=== PATIENT | female | born 1990 | race Caucasian/White ===

== ENCOUNTER 2017-09-16 00:58 | Inpatient (IN) | payer BC ==
[2017-09-16] MEDS ORDERED: VANCOMYCIN 1 GM (PMX) 250 ML IVPB (02:00)
[2017-09-16] MEDS: SOD CHLORIDE 0.9% 1,000 ML IV ×6 (02:20→20:36)
[2017-09-16] MEDS: morphine 4 MG/ML VIAL IV (02:34)
[2017-09-16] MEDS: ACETAMINOPHEN 500 MG TAB PO (02:34)
[2017-09-16] MEDS: IBUPROFEN 800 MG TAB PO (02:34)
[2017-09-16] MEDS: VANCOMYCIN 1 GM (PMX) 250 ML IVPB (02:34)
[2017-09-16 02:39] LABS: ADD MAN DIFF? NO
[2017-09-16 02:41] LABS: WHITE BLOOD COUNT 15.7 10^3/ul (4.8-10.8)
[2017-09-16 02:41] LABS: BASOPHILS % 0.2 % (0.0-2.0); EOSINOPHILS % 0.2 % (0.0-7.0); HEMATOCRIT 39.2 % (37.0-47.0); LYMPHOCYTES # 1.1 10^3/ul (0.8-2.9); LYMPHOCYTES % 7.2 % (15.0-51.0); MEAN CORPUSCULAR HEMOGLOBIN 27.5 pg (29.0-33.0); MEAN CORPUSCULAR HGB CONC 33.2 g/dl (32.0-37.0); MEAN CORPUSCULAR VOLUME 83.1 fl (82.0-101.0); MEAN PLATELET VOLUME 9.5 fl (7.4-10.4); MONOCYTE # 0.7 10^3/ul (0.3-0.9); MONOCYTES % 4.6 % (0.0-11.0); NEUTROPHIL # 13.7 10^3/ul (1.6-7.5); NEUTROPHILS % 87.2 % (39.0-77.0); PLATELET COUNT 297 10^3/UL (140-415); RED BLOOD COUNT 4.72 10^6/ul (4.20-5.40); RED CELL DISTRIBUTION WIDTH 13.6 % (11.5-14.5)
[2017-09-16 03:05] LABS: ALANINE AMINOTRANSFERASE 32 IU/L (13-69); ALBUMIN 4.2 g/dl (3.3-4.9); ALBUMIN/GLOBULIN RATIO 1.35; ALKALINE PHOSPHATASE 87 IU/L (42-121); AMYLASE 71 U/L (11-123); ANION GAP 16 (8-16); ASPARTATE AMINO TRANSFERASE 20 IU/L (15-46); BILIRUBIN,INDIRECT 0.6 mg/dl (0-1.1); BILIRUBIN,TOTAL 0.6 mg/dl (0.2-1.3); BLOOD UREA NITROGEN 12 mg/dl (7-20); CALCIUM 9.9 mg/dl (8.4-10.2); CARBON DIOXIDE 26 mmol/L (21-31); CHLORIDE 104 mmol/L (97-110); CREATININE 0.62 mg/dl (0.44-1.00); GLUCOSE 135 mg/dl (70-220); LIPASE 26 U/L (23-300); POTASSIUM 4.3 mmol/L (3.5-5.1); SODIUM 142 mmol/L (135-144); TOTAL PROTEIN 7.3 g/dl (6.1-8.1)
[2017-09-16 03:10] LABS: LACTIC ACID 2.5 mmol/L (0.5-2.0)
[2017-09-16 03:20] LABS: ADD UMIC YES; UR ASCORBIC ACID NEGATIVE (NEGATIVE); UR BACTERIA FEW /HPF (NONE SEEN); UR BILIRUBIN (Dip) NEGATIVE (NEGATIVE); UR BLOOD (Dip) 3+ mg/dL (NEGATIVE); UR BUDDING YEAST FEW /HPF (NONE SEEN); UR CLARITY SLIGHTLY CLOUDY (CLEAR); UR COLOR STRAW (YELLOW); UR GLUCOSE (Dip) NEGATIVE (NEGATIVE); UR KETONES (Dip) NEGATIVE (NEGATIVE); UR LEUKOCYTE ESTERASE (Dip) 3+ Leu/ul (NEGATIVE); UR NITRITE (Dip) NEGATIVE (NEGATIVE); UR RBC 13 /HPF (0-5); UR TOTAL PROTEIN (Dip) NEGATIVE (NEGATIVE); UR UROBILINOGEN (Dip) NEGATIVE (NEGATIVE); UR WBC 28 /HPF (0-5)
[2017-09-16] MEDS: IOHEXOL 300MG/ML 150 ML BTL (03:51)
[2017-09-16] MEDS: SOD CHLORIDE 0.9% 100 ML (03:51)
[2017-09-16 03:57] LABS: INR 0.94; PROTIME 12.7 Sec (11.9-14.9)
[2017-09-16 03:58] LABS: PARTIAL THROMBOPLASTIN TIME 29.8 Sec (25.0-35.0)
[2017-09-16] MEDS ORDERED: SOD CHLORIDE 0.9% 250 ML IV (04:00)
[2017-09-16] MEDS: LORAZEPAM 2 MG INJ IV (04:47)
[2017-09-16] MEDS: SOD CHLORIDE 0.9% IV (04:47)
[2017-09-16] MEDS: MEROPENEM 1 GM/50ML(PMX) 50 ML IVPB ×3 (04:56→21:52)
[2017-09-16] MEDS ORDERED: NACL 0.9% 3 ML SYG IV (05:00)
[2017-09-16] MEDS ORDERED: DOCUSATE SODIUM 100 MG CAP PO (05:00)
[2017-09-16] MEDS ORDERED: BISACODYL (EC) 5 MG TAB PO (05:00)
[2017-09-16] MEDS ORDERED: HYDROmorphONE 0.5 MG/0.5 ML SYG IV (05:00)
[2017-09-16 08:11] LABS: LACTIC ACID 1.7 mmol/L (0.5-2.0)
[2017-09-16 10:43] LABS: LACTIC ACID 1.3 mmol/L (0.5-2.0)
[2017-09-16] MEDS ORDERED: BUPIVACAINE 0.5% (SDV) 30 ML INJ (14:03)
[2017-09-16] MEDS ORDERED: ROPIVACAINE 0.5 % 30 ML VIAL (17:23)
[2017-09-16] MEDS ORDERED: FENTAnyl 50 MCG/ML VIAL (17:23)
[2017-09-16] MEDS ORDERED: ROCURONIUM 50 MG INJ (17:26)
[2017-09-16] MEDS ORDERED: SUGAMMADEX SODIUM 200 MG/2 ML VIAL IV (17:26)
[2017-09-16] MEDS ORDERED: LIDOCAINE 100 MG SYRINGE (17:26)
[2017-09-16] MEDS ORDERED: PROPOFOL 20 ML (17:26)
[2017-09-16] MEDS ORDERED: SUCCINYLCHOLINE CHLORIDE 100 MG/5 ML SYG IV (17:26)
[2017-09-16] MEDS: BUPIVACAINE 0.5%/EPI (SDV) 30 ML INJ INJ (17:30)
[2017-09-16] MEDS ORDERED: ONDANSETRON 4 MG INJ IV ×2 (18:30→19:00)
[2017-09-16] MEDS ORDERED: OXYCODONE/ACETAMINOPHEN (5/325) TAB PO (18:30)
[2017-09-16] MEDS: morphine 2 MG INJ IV ×2 (18:37→21:30)
[2017-09-16] MEDS: ONDANSETRON 4 MG INJ IV (18:37)
[2017-09-16] MEDS ORDERED: HYDROmorphONE 1 MG/5 ML IV SYRINGE IV ×3 (18:39→19:00)
[2017-09-16] MEDS: HYDROmorphONE 1 MG/5 ML IV SYRINGE IV (18:47)
[2017-09-16] MEDS ORDERED: DIPHENHYDRAMINE 50 MG INJ IV (19:00)
[2017-09-16] MEDS ORDERED: MEPERIDINE 25 MG INJ IV (19:00)
[2017-09-16] MEDS ORDERED: FENTAnyl 50 MCG/ML VIAL IV ×3 (19:00)
[2017-09-16] MEDS ORDERED: METOCLOPRAMIDE 10 MG INJ IV (19:00)
[2017-09-16] MEDS: ACETAMINOPHEN 325 MG TAB PO (23:08)
[2017-09-17] MEDS: morphine 2 MG INJ IV ×7 (01:08→23:01)
[2017-09-17] MEDS: SOD CHLORIDE 0.9% 1,000 ML IV ×3 (01:55→18:21)
[2017-09-17] MEDS: ALPRAZOLAM 0.25 MG TAB PO (02:11)
[2017-09-17] MEDS: MEROPENEM 1 GM/50ML(PMX) 50 ML IVPB ×3 (05:45→21:48)
[2017-09-17] MEDS: ACETAMINOPHEN 325 MG TAB PO (05:50)
[2017-09-17 06:30] LABS: ADD MAN DIFF? NO
[2017-09-17 06:32] LABS: WHITE BLOOD COUNT 7.6 10^3/ul (4.8-10.8)
[2017-09-17 06:32] LABS: BASOPHILS % 0.1 % (0.0-2.0); EOSINOPHILS % 0.5 % (0.0-7.0); HEMATOCRIT 33.2 % (37.0-47.0); HEMOGLOBIN 10.8 g/dl (12.0-16.0); LYMPHOCYTES # 1.7 10^3/ul (0.8-2.9); MEAN CORPUSCULAR HEMOGLOBIN 27.6 pg (29.0-33.0); MEAN CORPUSCULAR HGB CONC 32.5 g/dl (32.0-37.0); MEAN CORPUSCULAR VOLUME 84.7 fl (82.0-101.0); MEAN PLATELET VOLUME 9.4 fl (7.4-10.4); MONOCYTE # 0.5 10^3/ul (0.3-0.9); NEUTROPHIL # 5.3 10^3/ul (1.6-7.5); NEUTROPHILS % 70.1 % (39.0-77.0); PLATELET COUNT 220 10^3/UL (140-415); RED BLOOD COUNT 3.92 10^6/ul (4.20-5.40); RED CELL DISTRIBUTION WIDTH 13.9 % (11.5-14.5)
[2017-09-17 07:03] LABS: ALANINE AMINOTRANSFERASE 27 IU/L (13-69); ALBUMIN 3.2 g/dl (3.3-4.9); ALBUMIN/GLOBULIN RATIO 1.14; ALKALINE PHOSPHATASE 59 IU/L (42-121); ANION GAP 9 (8-16); ASPARTATE AMINO TRANSFERASE 19 IU/L (15-46); BILIRUBIN,INDIRECT 0.2 mg/dl (0-1.1); BILIRUBIN,TOTAL 0.2 mg/dl (0.2-1.3); BLOOD UREA NITROGEN 4 mg/dl (7-20); CALCIUM 8.6 mg/dl (8.4-10.2); CARBON DIOXIDE 27 mmol/L (21-31); CHLORIDE 110 mmol/L (97-110); CHOL/HDL RATIO 2.6 RATIO; CHOLESTEROL 129 mg/dl (100-200); CREATININE 0.58 mg/dl (0.44-1.00); GLUCOSE 100 mg/dl (70-220); HDL CHOLESTEROL 49 mg/dl (33-83); LDL CHOLESTEROL,CALCULATED 59 mg/dl; MAGNESIUM 1.6 mg/dl (1.7-2.5); POTASSIUM 3.7 mmol/L (3.5-5.1); SODIUM 142 mmol/L (135-144); TRIGLYCERIDES 104 mg/dl (0-149)
[2017-09-17 08:17] LABS: HEMOGLOBIN A1C 4.8 % (0-5.9)
[2017-09-17] MEDS: OXYCODONE/ACETAMINOPHEN (5/325) TAB PO (10:35)
[2017-09-17] MEDS: FLUCONAZOLE 150 MG TAB PO (14:16)
[2017-09-17] MEDS: HYDROCODONE/APAP (5/325) TAB PO (21:49)
[2017-09-18] MEDS: ALPRAZOLAM 0.25 MG TAB PO (01:08)
[2017-09-18] MEDS: SOD CHLORIDE 0.9% 1,000 ML IV (04:08)
[2017-09-18] MEDS: MEROPENEM 1 GM/50ML(PMX) 50 ML IVPB (06:33)
[2017-09-18] MEDS: morphine 2 MG INJ IV ×2 (06:33→10:52)
[2017-09-18] MEDS: MAGNESIUM OXIDE 400 MG TAB PO (12:50)
[2017-09-18] MEDS: METOPROLOL (XL) 50 MG TAB PO (12:50)
[2017-09-18] MEDS: traMADol 50 MG TAB PO (13:24)
[2017-09-18] MEDS ORDERED: NAPROXEN 500 MG TAB PO (13:30)
[2017-09-18] MEDS: FLUCONAZOLE 200 MG TAB PO (16:45)
[2017-09-18] MEDS: CIPROFLOXACIN 500 MG TAB PO (16:45)
[2017-09-18] MEDS: ESTRADIOL 1 MG TAB PO ×2 (20:43→23:30)
[2017-09-18] MEDS: ACETAMINOPHEN 325 MG TAB PO (20:43)
[2017-09-18] MEDS: TAMSULOSIN (SR) 0.4 MG CAP PO (23:39)
[2017-09-19] MEDS: NEOMYC/POLYMYX/BACIT 30 GM OINT TOP (01:02)
[2017-09-19] MEDS: ALPRAZOLAM 0.25 MG TAB PO (04:10)
[2017-09-19] MEDS: ACETAMINOPHEN 325 MG TAB PO (04:10)
[2017-09-19 05:33] LABS: ADD MAN DIFF? NO
[2017-09-19 05:37] LABS: WHITE BLOOD COUNT 7.8 10^3/ul (4.8-10.8)
[2017-09-19 05:37] LABS: BASOPHILS % 0.3 % (0.0-2.0); EOSINOPHILS # 0.1 10^3/ul (0.0-0.5); EOSINOPHILS % 1.8 % (0.0-7.0); HEMATOCRIT 35.9 % (37.0-47.0); HEMOGLOBIN 12.1 g/dl (12.0-16.0); LYMPHOCYTES # 1.8 10^3/ul (0.8-2.9); LYMPHOCYTES % 23.4 % (15.0-51.0); MEAN CORPUSCULAR HEMOGLOBIN 28.1 pg (29.0-33.0); MEAN CORPUSCULAR HGB CONC 33.7 g/dl (32.0-37.0); MEAN CORPUSCULAR VOLUME 83.3 fl (82.0-101.0); MEAN PLATELET VOLUME 9.1 fl (7.4-10.4); MONOCYTE # 0.5 10^3/ul (0.3-0.9); MONOCYTES % 6.5 % (0.0-11.0); NEUTROPHIL # 5.3 10^3/ul (1.6-7.5); NEUTROPHILS % 67.9 % (39.0-77.0); PLATELET COUNT 286 10^3/UL (140-415); RED BLOOD COUNT 4.31 10^6/ul (4.20-5.40); RED CELL DISTRIBUTION WIDTH 12.8 % (11.5-14.5)
[2017-09-19] MEDS: PANTOPRAZOLE (EC) 40 MG TAB PO (06:31)
[2017-09-19 06:40] LABS: ANION GAP 13 (8-16); BLOOD UREA NITROGEN 6 mg/dl (7-20); CALCIUM 9.5 mg/dl (8.4-10.2); CARBON DIOXIDE 29 mmol/L (21-31); CHLORIDE 105 mmol/L (97-110); CREATININE 0.48 mg/dl (0.44-1.00); GLUCOSE 100 mg/dl (70-220); MAGNESIUM 1.8 mg/dl (1.7-2.5); PHOSPHORUS 4.5 mg/dl (2.5-4.9); POTASSIUM 3.7 mmol/L (3.5-5.1); SODIUM 143 mmol/L (135-144)
[2017-09-19 06:53] LABS: ADD UMIC YES; UR ASCORBIC ACID NEGATIVE (NEGATIVE); UR BACTERIA FEW /HPF (NONE SEEN); UR BILIRUBIN (Dip) NEGATIVE (NEGATIVE); UR BLOOD (Dip) 2+ mg/dL (NEGATIVE); UR CLARITY SLIGHTLY CLOUDY (CLEAR); UR COLOR YELLOW (YELLOW); UR GLUCOSE (Dip) NEGATIVE (NEGATIVE); UR KETONES (Dip) TRACE mg/dL (NEGATIVE); UR LEUKOCYTE ESTERASE (Dip) 2+ Leu/ul (NEGATIVE); UR NITRITE (Dip) NEGATIVE (NEGATIVE); UR RBC 16 /HPF (0-5); UR SPECIFIC GRAVITY (Dip) 1.012 (1.003-1.030); UR SQUAMOUS EPITHELIAL CELL FEW /HPF (FEW); UR TOTAL PROTEIN (Dip) NEGATIVE (NEGATIVE); UR UROBILINOGEN (Dip) NEGATIVE (NEGATIVE); UR WBC 54 /HPF (0-5)
[2017-09-19] MEDS: FLUCONAZOLE 200 MG TAB PO (08:31)
[2017-09-19] MEDS: METOPROLOL (XL) 50 MG TAB PO (08:31)
[2017-09-19] MEDS: ESTRADIOL 1 MG TAB PO (08:31)
[2017-09-19] MEDS: FLUTICASONE 0.05% 16 GM NAS SPRAY NASAL (08:32)
[2017-09-19] MEDS ORDERED: FINASTERIDE 5 MG TAB PO (09:00)
[2017-09-19] MEDS: CIPROFLOXACIN 500 MG TAB PO (11:37)
[2017-09-19] MEDS ORDERED: CIPROFLOXACIN 500 MG TAB PO (18:00)
== END 2017-09-19 13:02 | disposition home or self-care (01) | DRG 854 ==
LOC: FTE 00:58 → MS4 04:33
PROC: 0DTJ4ZZ Resection of Appendix, Percutaneous Endoscopic Approach (ICD-10-PCS; principal; 2017-09-16 17:20)
DX: A41.9 Sepsis, unspecified organism (principal); K35.80 Unspecified acute appendicitis; B37.49 Other urogenital candidiasis; R65.20 Severe sepsis without septic shock; F64.0 Transsexualism; F41.9 Anxiety disorder, unspecified; B95.2 Enterococcus as the cause of diseases classified elsewhere; Z93.8 Other artificial opening status; Z87.890 Personal history of sex reassignment
CPT/HCPCS: 36415; 71045; 74177; 80048; 80053; 80061; 81001; 82150; 83036; 83605; 83690; 83735; 84100; 84443; 84703; 85025; 85610; 85730; 87040; 87086; 93005; 96365; 96366; 97161; 99291-25

== ENCOUNTER 2018-06-11 01:42 | Emergency (ER) | payer BC, OTHER ==
[2018-06-11] MEDS: SOD CHLORIDE 0.9% 500 ML IV (03:32)
[2018-06-11] MEDS: ONDANSETRON 4 MG INJ IV (03:32)
[2018-06-11 03:41] LABS: ADD MAN DIFF? NO
[2018-06-11 04:05] LABS: ANION GAP 8 (5-13); BLOOD UREA NITROGEN 10 mg/dl (7-20); CALCIUM 9.5 mg/dl (8.4-10.2); CARBON DIOXIDE 22 mmol/L (21-31); CHLORIDE 112 mmol/L (97-110); CREATININE 0.62 mg/dl (0.44-1.00); Estimated GFR > 60 mL/min (>60); GLUCOSE 147 mg/dl (70-220); POTASSIUM 3.8 mmol/L (3.5-5.1); SODIUM 142 mmol/L (135-144)
[2018-06-11 04:20] LABS: WHITE BLOOD COUNT 8.8 10^3/ul (4.8-10.8)
[2018-06-11 04:20] LABS: BASOPHILS % 0.3 % (0.0-2.0); EOSINOPHILS # 0.2 10^3/ul (0.0-0.5); EOSINOPHILS % 2.1 % (0.0-7.0); HEMATOCRIT 38.9 % (37.0-47.0); LYMPHOCYTES # 2.6 10^3/ul (0.8-2.9); LYMPHOCYTES % 29.7 % (15.0-51.0); MEAN CORPUSCULAR HEMOGLOBIN 27.4 pg (29.0-33.0); MEAN CORPUSCULAR HGB CONC 33.4 g/dl (32.0-37.0); MEAN CORPUSCULAR VOLUME 81.9 fl (82.0-101.0); MEAN PLATELET VOLUME 9.4 fl (7.4-10.4); MONOCYTE # 0.5 10^3/ul (0.3-0.9); MONOCYTES % 5.8 % (0.0-11.0); NEUTROPHIL # 5.4 10^3/ul (1.6-7.5); NEUTROPHILS % 61.5 % (39.0-77.0); PLATELET COUNT 249 10^3/UL (140-415); RED BLOOD COUNT 4.75 10^6/ul (4.20-5.40); RED CELL DISTRIBUTION WIDTH 14.3 % (11.5-14.5)
== END 2018-06-11 05:53 | disposition home or self-care (01) ==
LOC: FTE 05:53
DX: R42 Dizziness and giddiness (principal)
CPT/HCPCS: 80048; 85025; 93005; 96361; 96374; 99284-25

== ENCOUNTER 2018-07-02 08:11 | Inpatient (IN) | payer BC ==
[2018-07-02] MEDS: SOD CHLORIDE 0.9% 1,000 ML IV (09:17)
[2018-07-02] MEDS: FAMOTIDINE 20 MG TAB PO (09:18)
[2018-07-02] MEDS: KETOROLAC 30 MG INJ IV (09:18)
[2018-07-02] MEDS: ONDANSETRON 4 MG INJ IV ×2 (09:18→23:14)
[2018-07-02 09:26] LABS: ADD MAN DIFF? NO
[2018-07-02 09:31] LABS: BASOPHILS % 0.2 % (0.0-2.0); EOSINOPHILS # 0.1 10^3/ul (0.0-0.5); EOSINOPHILS % 1.3 % (0.0-7.0); HEMATOCRIT 44.4 % (37.0-47.0); LYMPHOCYTES # 2.6 10^3/ul (0.8-2.9); LYMPHOCYTES % 26.3 % (15.0-51.0); MEAN CORPUSCULAR HEMOGLOBIN 27.3 pg (29.0-33.0); MEAN CORPUSCULAR HGB CONC 33.8 g/dl (32.0-37.0); MEAN CORPUSCULAR VOLUME 80.7 fl (82.0-101.0); MEAN PLATELET VOLUME 9.2 fl (7.4-10.4); MONOCYTE # 0.4 10^3/ul (0.3-0.9); NEUTROPHIL # 6.7 10^3/ul (1.6-7.5); NEUTROPHILS % 67.9 % (39.0-77.0); PLATELET COUNT 265 10^3/UL (140-415); RED CELL DISTRIBUTION WIDTH 13.9 % (11.5-14.5)
[2018-07-02 09:31] LABS: WHITE BLOOD COUNT 9.9 10^3/ul (4.8-10.8)
[2018-07-02 09:39] LABS: ADD UMIC YES; UR ASCORBIC ACID NEGATIVE (NEGATIVE); UR BILIRUBIN (Dip) NEGATIVE (NEGATIVE); UR BLOOD (Dip) NEGATIVE (NEGATIVE); UR CLARITY SLIGHTLY CLOUDY (CLEAR); UR COLOR YELLOW (YELLOW); UR GLUCOSE (Dip) NEGATIVE (NEGATIVE); UR KETONES (Dip) NEGATIVE (NEGATIVE); UR LEUKOCYTE ESTERASE (Dip) TRACE Leu/ul (NEGATIVE); UR NITRITE (Dip) NEGATIVE (NEGATIVE); UR RBC 1 /HPF (0-5); UR SPECIFIC GRAVITY (Dip) 1.027 (1.003-1.030); UR SQUAMOUS EPITHELIAL CELL FEW /HPF (FEW); UR TOTAL PROTEIN (Dip) NEGATIVE (NEGATIVE); UR UROBILINOGEN (Dip) NEGATIVE (NEGATIVE); UR WBC 4 /HPF (0-5)
[2018-07-02 09:49] LABS: ALANINE AMINOTRANSFERASE 19 IU/L (13-69); ALBUMIN 4.5 g/dl (3.3-4.9); ALBUMIN/GLOBULIN RATIO 1.45; ALKALINE PHOSPHATASE 87 IU/L (42-121); ANION GAP 12 (5-13); ASPARTATE AMINO TRANSFERASE 21 IU/L (15-46); BILIRUBIN,INDIRECT 0.3 mg/dl (0-1.1); BILIRUBIN,TOTAL 0.3 mg/dl (0.2-1.3); BLOOD UREA NITROGEN 10 mg/dl (7-20); CARBON DIOXIDE 22 mmol/L (21-31); CHLORIDE 109 mmol/L (97-110); CREATININE 0.53 mg/dl (0.44-1.00); Estimated GFR > 60 mL/min (>60); GLUCOSE 117 mg/dl (70-220); LIPASE 39 U/L (23-300); POTASSIUM 3.8 mmol/L (3.5-5.1); SODIUM 143 mmol/L (135-144); TOTAL PROTEIN 7.6 g/dl (6.1-8.1)
[2018-07-02 10:05] LABS: TROPONIN-I 0.252 ng/ml (0.000-0.120)
[2018-07-02] MEDS: ASPIRIN 81 MG TAB PO (10:14)
[2018-07-02] MEDS: LORAZEPAM 2 MG INJ IV (10:27)
[2018-07-02] MEDS: IOHEXOL 300MG/ML 150 ML BTL (10:43)
[2018-07-02] MEDS: SOD CHLORIDE 0.9% 100 ML (10:43)
[2018-07-02 12:52] LABS: AMPHETAMINE/METHAMPHETAMINE NEGATIVE (NEGATIVE); BARBITURATES NEGATIVE (NEGATIVE); BENZODIAZEPINES NEGATIVE (NEGATIVE); CANNABINOIDS NEGATIVE (NEGATIVE); COCAINE NEGATIVE (NEGATIVE); OPIATES NEGATIVE (NEGATIVE)
[2018-07-02] MEDS ORDERED: NACL 0.9% 3 ML SYG IV (14:30)
[2018-07-02] MEDS ORDERED: ACETAMINOPHEN 325 MG TAB PO (14:30)
[2018-07-02 15:18] LABS: CK-MB 2.67 ng/ml (0.0-2.4)
[2018-07-02 15:31] LABS: CK INDEX 6.7; CREATINE KINASE 40 IU/L (23-200)
[2018-07-02 15:37] LABS: HEMOGLOBIN A1C 5.1 % (0-5.9); THYROID STIMULATING HORMONE 0.888 MIU/L (0.465-4.680)
[2018-07-02 17:08] LABS: D-DIMER < 220.00 ng/ml (<460)
[2018-07-02 21:42] LABS: CREATINE KINASE 39 IU/L (23-200)
[2018-07-02 21:56] LABS: CK INDEX 6.2
[2018-07-02 22:01] LABS: TROPONIN-I 0.483 ng/ml (0.000-0.120)
[2018-07-02] MEDS: ESTRADIOL 1 MG TAB PO (23:39)
[2018-07-03 03:41] LABS: ADD MAN DIFF? NO
[2018-07-03 03:42] LABS: WHITE BLOOD COUNT 8.3 10^3/ul (4.8-10.8)
[2018-07-03 03:42] LABS: BASOPHILS % 0.2 % (0.0-2.0); EOSINOPHILS # 0.1 10^3/ul (0.0-0.5); EOSINOPHILS % 1.2 % (0.0-7.0); HEMATOCRIT 38.6 % (37.0-47.0); HEMOGLOBIN 13.1 g/dl (12.0-16.0); LYMPHOCYTES # 3.1 10^3/ul (0.8-2.9); MEAN CORPUSCULAR HEMOGLOBIN 27.5 pg (29.0-33.0); MEAN CORPUSCULAR HGB CONC 33.9 g/dl (32.0-37.0); MEAN CORPUSCULAR VOLUME 81.1 fl (82.0-101.0); MEAN PLATELET VOLUME 9.2 fl (7.4-10.4); MONOCYTE # 0.5 10^3/ul (0.3-0.9); MONOCYTES % 5.5 % (0.0-11.0); NEUTROPHIL # 4.6 10^3/ul (1.6-7.5); NEUTROPHILS % 55.9 % (39.0-77.0); PLATELET COUNT 232 10^3/UL (140-415); RED BLOOD COUNT 4.76 10^6/ul (4.20-5.40); RED CELL DISTRIBUTION WIDTH 13.9 % (11.5-14.5)
[2018-07-03 04:11] LABS: ALANINE AMINOTRANSFERASE 22 IU/L (13-69); ALBUMIN 3.7 g/dl (3.3-4.9); ALBUMIN/GLOBULIN RATIO 1.23; ALKALINE PHOSPHATASE 73 IU/L (42-121); ANION GAP 10 (5-13); ASPARTATE AMINO TRANSFERASE 21 IU/L (15-46); BILIRUBIN,INDIRECT 0.5 mg/dl (0-1.1); BILIRUBIN,TOTAL 0.5 mg/dl (0.2-1.3); BLOOD UREA NITROGEN 7 mg/dl (7-20); CALCIUM 9.6 mg/dl (8.4-10.2); CARBON DIOXIDE 21 mmol/L (21-31); CHLORIDE 112 mmol/L (97-110); CREATINE KINASE 30 IU/L (23-200); CREATININE 0.51 mg/dl (0.44-1.00); Estimated GFR > 60 mL/min (>60); GLUCOSE 104 mg/dl (70-220); POTASSIUM 3.7 mmol/L (3.5-5.1); SODIUM 143 mmol/L (135-144); TOTAL PROTEIN 6.7 g/dl (6.1-8.1)
[2018-07-03 04:13] LABS: CHOL/HDL RATIO 2.9 RATIO; CHOLESTEROL 149 mg/dl (100-200); HDL CHOLESTEROL 50 mg/dl (33-83); LDL CHOLESTEROL,CALCULATED 67 mg/dl; MAGNESIUM 1.9 mg/dl (1.7-2.5); TRIGLYCERIDES 161 mg/dl (0-149)
[2018-07-03 04:13] LABS: PHOSPHORUS 3.6 mg/dl (2.5-4.9)
[2018-07-03 04:19] LABS: CK INDEX 5.5; CK-MB 1.66 ng/ml (0.0-2.4)
[2018-07-03 04:20] LABS: TROPONIN-I 0.244 ng/ml (0.000-0.120)
[2018-07-03] MEDS: LORAZEPAM 2 MG INJ IV (07:10)
[2018-07-03] MEDS: ESTRADIOL 1 MG TAB PO (08:21)
[2018-07-03] MEDS: ENOXAPARIN 40 MG/0.4 ML SYG SC (08:22)
[2018-07-03] MEDS: ASPIRIN 81 MG TAB PO (08:23)
[2018-07-03] MEDS: PANTOPRAZOLE (EC) 40 MG TAB PO (08:23)
[2018-07-03] MEDS: METOPROLOL (XL) 50 MG TAB PO (08:23)
[2018-07-03] MEDS: REGADENOSON 0.4 MG/5 ML SYG (10:20)
== END 2018-07-03 19:30 | disposition home or self-care (01) | DRG 282 ==
LOC: FTE 08:11 → TEL 10:31
PROC: C21G1ZZ Planar Nuclear Medicine Imaging of Myocardium using Technetium 99m (Tc-99m) (ICD-10-PCS; principal; 2018-07-03)
DX: I21.4 Non-ST elevation (NSTEMI) myocardial infarction (principal); R00.0 Tachycardia, unspecified; F41.9 Anxiety disorder, unspecified; E66.9 Obesity, unspecified; Z68.37 Body mass index [BMI] 37.0-37.9, adult
CPT/HCPCS: 36415; 71045; 74177; 78452; 80053; 80061; 80307; 81001; 81025; 82550; 82553; 83036; 83690; 83735; 84100; 84443; 84484; 85025; 85378; 93005; 93017; 93306; 96361; 96374; 96375; 99285-25

== ENCOUNTER 2018-07-29 01:55 | Emergency (ER) | payer BC ==
[2018-07-29] MEDS ORDERED: ASPIRIN (EC) 325 MG TAB PO (02:30)
[2018-07-29 02:49] LABS: ADD MAN DIFF? NO
[2018-07-29 02:52] LABS: WHITE BLOOD COUNT 8.5 10^3/ul (4.8-10.8)
[2018-07-29 02:52] LABS: BASOPHILS % 0.4 % (0.0-2.0); EOSINOPHILS # 0.1 10^3/ul (0.0-0.5); EOSINOPHILS % 1.4 % (0.0-7.0); HEMATOCRIT 40.5 % (37.0-47.0); HEMOGLOBIN 13.5 g/dl (12.0-16.0); LYMPHOCYTES % 35.6 % (15.0-51.0); MEAN CORPUSCULAR HEMOGLOBIN 27.2 pg (29.0-33.0); MEAN CORPUSCULAR HGB CONC 33.3 g/dl (32.0-37.0); MEAN CORPUSCULAR VOLUME 81.5 fl (82.0-101.0); MEAN PLATELET VOLUME 8.7 fl (7.4-10.4); MONOCYTE # 0.5 10^3/ul (0.3-0.9); MONOCYTES % 5.4 % (0.0-11.0); NEUTROPHIL # 4.8 10^3/ul (1.6-7.5); NEUTROPHILS % 56.6 % (39.0-77.0); PLATELET COUNT 227 10^3/UL (140-415); RED BLOOD COUNT 4.97 10^6/ul (4.20-5.40); RED CELL DISTRIBUTION WIDTH 13.4 % (11.5-14.5)
[2018-07-29] MEDS ORDERED: ASPIRIN 81 MG TAB (02:56)
[2018-07-29 02:57] LABS: ADD UMIC YES; UR ASCORBIC ACID NEGATIVE (NEGATIVE); UR BILIRUBIN (Dip) NEGATIVE (NEGATIVE); UR BLOOD (Dip) NEGATIVE (NEGATIVE); UR CLARITY CLEAR (CLEAR); UR COLOR YELLOW (YELLOW); UR GLUCOSE (Dip) NEGATIVE (NEGATIVE); UR KETONES (Dip) NEGATIVE (NEGATIVE); UR LEUKOCYTE ESTERASE (Dip) 1+ Leu/ul (NEGATIVE); UR NITRITE (Dip) NEGATIVE (NEGATIVE); UR RBC 3 /HPF (0-5); UR SPECIFIC GRAVITY (Dip) 1.028 (1.003-1.030); UR TOTAL PROTEIN (Dip) NEGATIVE (NEGATIVE); UR UROBILINOGEN (Dip) NEGATIVE (NEGATIVE); UR WBC 11 /HPF (0-5)
[2018-07-29] MEDS: LORAZEPAM 1 MG TAB PO (03:00)
[2018-07-29] MEDS: ASPIRIN 81 MG TAB PO (03:01)
[2018-07-29 03:08] LABS: ALANINE AMINOTRANSFERASE 29 IU/L (13-69); ALBUMIN 4.2 g/dl (3.3-4.9); ALBUMIN/GLOBULIN RATIO 1.23; ALKALINE PHOSPHATASE 86 IU/L (42-121); ANION GAP 9 (5-13); ASPARTATE AMINO TRANSFERASE 29 IU/L (15-46); BILIRUBIN,INDIRECT 0.5 mg/dl (0-1.1); BILIRUBIN,TOTAL 0.5 mg/dl (0.2-1.3); BLOOD UREA NITROGEN 17 mg/dl (7-20); CALCIUM 9.9 mg/dl (8.4-10.2); CARBON DIOXIDE 25 mmol/L (21-31); CHLORIDE 109 mmol/L (97-110); CREATININE 0.55 mg/dl (0.44-1.00); Estimated GFR > 60 mL/min (>60); GLUCOSE 121 mg/dl (70-220); SODIUM 143 mmol/L (135-144); TOTAL PROTEIN 7.6 g/dl (6.1-8.1)
[2018-07-29 03:09] LABS: AMPHETAMINE/METHAMPHETAMINE Negative (NEGATIVE); BARBITURATES Negative (NEGATIVE); BENZODIAZEPINES Negative (NEGATIVE); CANNABINOIDS Negative (NEGATIVE); COCAINE Negative (NEGATIVE); OPIATES Negative (NEGATIVE)
[2018-07-29 03:11] LABS: INR 0.92; PROTIME 12.5 Sec (11.9-14.9)
[2018-07-29 03:20] LABS: TROPONIN-I < 0.012 ng/ml (0.000-0.120)
== END 2018-07-29 04:16 | disposition home or self-care (01) ==
LOC: FTE 04:16
DX: F41.9 Anxiety disorder, unspecified (principal); N39.0 Urinary tract infection, site not specified
CPT/HCPCS: 36415; 80053; 80307; 81001; 81025; 84484; 85025; 85610; 85730; 93005; 99284-25

== ENCOUNTER 2018-08-15 04:27 | Emergency (ER) | payer BC ==
[2018-08-15 05:15] LABS: ADD MAN DIFF? NO
[2018-08-15 05:16] LABS: WHITE BLOOD COUNT 7.6 10^3/ul (4.8-10.8)
[2018-08-15 05:16] LABS: BASOPHILS % 0.3 % (0.0-2.0); EOSINOPHILS # 0.1 10^3/ul (0.0-0.5); EOSINOPHILS % 1.4 % (0.0-7.0); HEMATOCRIT 40.6 % (37.0-47.0); HEMOGLOBIN 13.7 g/dl (12.0-16.0); LYMPHOCYTES # 2.4 10^3/ul (0.8-2.9); LYMPHOCYTES % 30.8 % (15.0-51.0); MEAN CORPUSCULAR HEMOGLOBIN 27.4 pg (29.0-33.0); MEAN CORPUSCULAR HGB CONC 33.7 g/dl (32.0-37.0); MEAN CORPUSCULAR VOLUME 81.2 fl (82.0-101.0); MEAN PLATELET VOLUME 8.9 fl (7.4-10.4); MONOCYTE # 0.4 10^3/ul (0.3-0.9); MONOCYTES % 5.6 % (0.0-11.0); NEUTROPHIL # 4.7 10^3/ul (1.6-7.5); NEUTROPHILS % 61.2 % (39.0-77.0); PLATELET COUNT 231 10^3/UL (140-415); RED CELL DISTRIBUTION WIDTH 13.5 % (11.5-14.5)
[2018-08-15] MEDS: SOD CHLORIDE 0.9% 500 ML IV (05:17)
[2018-08-15 05:36] LABS: INR 0.88; PT RATIO 0.9
[2018-08-15 05:37] LABS: PARTIAL THROMBOPLASTIN TIME 27.7 Sec (23.0-35.0)
[2018-08-15] MEDS: ONDANSETRON 4 MG INJ IV (05:51)
[2018-08-15] MEDS: morphine 4 MG/ML VIAL IV (05:52)
[2018-08-15 05:56] LABS: ALANINE AMINOTRANSFERASE 29 IU/L (13-69); ALBUMIN/GLOBULIN RATIO 1.33; ALKALINE PHOSPHATASE 89 IU/L (42-121); ANION GAP 8 (5-13); ASPARTATE AMINO TRANSFERASE 23 IU/L (15-46); BILIRUBIN,INDIRECT 0.4 mg/dl (0-1.1); BILIRUBIN,TOTAL 0.4 mg/dl (0.2-1.3); BLOOD UREA NITROGEN 11 mg/dl (7-20); CALCIUM 9.6 mg/dl (8.4-10.2); CARBON DIOXIDE 23 mmol/L (21-31); CHLORIDE 111 mmol/L (97-110); Estimated GFR > 60 mL/min (>60); GLUCOSE 141 mg/dl (70-220); LIPASE 54 U/L (23-300); POTASSIUM 3.6 mmol/L (3.5-5.1); SODIUM 142 mmol/L (135-144)
[2018-08-15 06:08] LABS: B-TYPE NATRIURETIC PEPTIDE 21 PG/ML (0-125)
== END 2018-08-15 06:46 | disposition home or self-care (01) ==
LOC: E/R 04:27
DX: R07.9 Chest pain, unspecified (principal); I25.2 Old myocardial infarction
CPT/HCPCS: 36415; 71045; 80053; 83690; 83880; 84484; 85025; 85378; 85610; 85730; 93005; 96374; 96375; 99285-25

== ENCOUNTER 2018-09-07 01:39 | Emergency (ER) | payer BC ==
[2018-09-07 02:15] LABS: ADD MAN DIFF? NO
[2018-09-07 02:17] LABS: BASOPHILS % 0.2 % (0.0-2.0); EOSINOPHILS # 0.1 10^3/ul (0.0-0.5); EOSINOPHILS % 1.5 % (0.0-7.0); HEMATOCRIT 38.7 % (37.0-47.0); HEMOGLOBIN 13.3 g/dl (12.0-16.0); LYMPHOCYTES # 2.9 10^3/ul (0.8-2.9); LYMPHOCYTES % 35.1 % (15.0-51.0); MEAN CORPUSCULAR HEMOGLOBIN 27.3 pg (29.0-33.0); MEAN CORPUSCULAR HGB CONC 34.4 g/dl (32.0-37.0); MEAN CORPUSCULAR VOLUME 79.5 fl (82.0-101.0); MEAN PLATELET VOLUME 9.1 fl (7.4-10.4); MONOCYTE # 0.5 10^3/ul (0.3-0.9); MONOCYTES % 5.5 % (0.0-11.0); NEUTROPHIL # 4.7 10^3/ul (1.6-7.5); NEUTROPHILS % 57.3 % (39.0-77.0); PLATELET COUNT 238 10^3/UL (140-415); RED BLOOD COUNT 4.87 10^6/ul (4.20-5.40); RED CELL DISTRIBUTION WIDTH 13.9 % (11.5-14.5)
[2018-09-07 02:17] LABS: WHITE BLOOD COUNT 8.1 10^3/ul (4.8-10.8)
[2018-09-07 02:47] LABS: ALANINE AMINOTRANSFERASE 27 IU/L (13-69); ALBUMIN 4.1 g/dl (3.3-4.9); ALKALINE PHOSPHATASE 102 IU/L (42-121); ANION GAP 12 (5-13); ASPARTATE AMINO TRANSFERASE 22 IU/L (15-46); BILIRUBIN,INDIRECT 0.4 mg/dl (0-1.1); BILIRUBIN,TOTAL 0.4 mg/dl (0.2-1.3); BLOOD UREA NITROGEN 10 mg/dl (7-20); CALCIUM 9.5 mg/dl (8.4-10.2); CARBON DIOXIDE 23 mmol/L (21-31); CHLORIDE 109 mmol/L (97-110); CREATININE 0.69 mg/dl (0.44-1.00); Estimated GFR > 60 mL/min (>60); GLUCOSE 128 mg/dl (70-220); POTASSIUM 3.8 mmol/L (3.5-5.1); SODIUM 144 mmol/L (135-144); TOTAL PROTEIN 7.5 g/dl (6.1-8.1)
[2018-09-07 02:57] LABS: TROPONIN-I < 0.012 ng/ml (0.000-0.120)
== END 2018-09-07 03:35 | disposition home or self-care (01) ==
LOC: FTE 01:39
DX: R45.0 Nervousness (principal); R25.1 Tremor, unspecified
CPT/HCPCS: 80053; 84443; 84484; 85025; 93005; 99284-25

== ENCOUNTER 2018-10-10 11:23 | Emergency (ER) | payer BC ==
[2018-10-10 12:42] LABS: ADD MAN DIFF? NO
[2018-10-10 12:50] LABS: BASOPHILS % 0.1 % (0.0-2.0); EOSINOPHILS # 0.1 10^3/ul (0.0-0.5); EOSINOPHILS % 0.7 % (0.0-7.0); HEMATOCRIT 39.5 % (37.0-47.0); HEMOGLOBIN 13.3 g/dl (12.0-16.0); LYMPHOCYTES # 1.7 10^3/ul (0.8-2.9); LYMPHOCYTES % 17.9 % (15.0-51.0); MEAN CORPUSCULAR HEMOGLOBIN 27.5 pg (29.0-33.0); MEAN CORPUSCULAR HGB CONC 33.7 g/dl (32.0-37.0); MEAN CORPUSCULAR VOLUME 81.6 fl (82.0-101.0); MEAN PLATELET VOLUME 9.2 fl (7.4-10.4); MONOCYTE # 0.5 10^3/ul (0.3-0.9); MONOCYTES % 5.3 % (0.0-11.0); NEUTROPHIL # 7.3 10^3/ul (1.6-7.5); NEUTROPHILS % 75.7 % (39.0-77.0); PLATELET COUNT 220 10^3/UL (140-415); RED BLOOD COUNT 4.84 10^6/ul (4.20-5.40)
[2018-10-10 12:50] LABS: WHITE BLOOD COUNT 9.7 10^3/ul (4.8-10.8)
[2018-10-10 12:56] LABS: ADD UMIC NO; UR ASCORBIC ACID NEGATIVE (NEGATIVE); UR BILIRUBIN (Dip) NEGATIVE (NEGATIVE); UR BLOOD (Dip) NEGATIVE (NEGATIVE); UR CLARITY SLIGHTLY CLOUDY (CLEAR); UR COLOR YELLOW (YELLOW); UR GLUCOSE (Dip) NEGATIVE (NEGATIVE); UR KETONES (Dip) NEGATIVE (NEGATIVE); UR LEUKOCYTE ESTERASE (Dip) NEGATIVE Leu/ul (NEGATIVE); UR MUCUS FEW /HPF (NONE SEEN); UR NITRITE (Dip) NEGATIVE (NEGATIVE); UR RBC 1 /HPF (0-5); UR SPECIFIC GRAVITY (Dip) 1.026 (1.003-1.030); UR SQUAMOUS EPITHELIAL CELL FEW /HPF (FEW); UR TOTAL PROTEIN (Dip) NEGATIVE (NEGATIVE); UR UROBILINOGEN (Dip) NEGATIVE (NEGATIVE); UR WBC 4 /HPF (0-5)
[2018-10-10 13:07] LABS: SODIUM 140 mmol/L (135-144)
[2018-10-10] MEDS: SOD CHLORIDE 0.9% 1,000 ML IV (13:07)
[2018-10-10] MEDS: ONDANSETRON 4 MG INJ IV (13:07)
[2018-10-10 13:10] LABS: ALANINE AMINOTRANSFERASE 28 IU/L (13-69); ALBUMIN/GLOBULIN RATIO 1.25; ALKALINE PHOSPHATASE 79 IU/L (42-121); ANION GAP 7 (5-13); ASPARTATE AMINO TRANSFERASE 28 IU/L (15-46); BILIRUBIN,INDIRECT 0.7 mg/dl (0-1.1); BILIRUBIN,TOTAL 0.7 mg/dl (0.2-1.3); BLOOD UREA NITROGEN 8 mg/dl (7-20); CALCIUM 9.4 mg/dl (8.4-10.2); CARBON DIOXIDE 26 mmol/L (21-31); CHLORIDE 107 mmol/L (97-110); CREATININE 0.44 mg/dl (0.44-1.00); Estimated GFR > 60 mL/min (>60); GLUCOSE 129 mg/dl (70-220); LIPASE 26 U/L (23-300); TOTAL PROTEIN 7.2 g/dl (6.1-8.1)
== END 2018-10-10 14:28 | disposition home or self-care (01) ==
LOC: FTE 11:23
DX: R11.0 Nausea (principal); R19.7 Diarrhea, unspecified
CPT/HCPCS: 36415; 76705; 80053; 81001; 81003; 83690; 84703; 85025; 96361; 96374; 99285-25

== ENCOUNTER 2018-10-11 22:52 | Emergency (ER) | payer BC ==
[2018-10-12 00:31] LABS: ADD MAN DIFF? NO
[2018-10-12 00:33] LABS: BASOPHILS % 0.4 % (0.0-2.0); EOSINOPHILS # 0.1 10^3/ul (0.0-0.5); EOSINOPHILS % 0.8 % (0.0-7.0); HEMATOCRIT 39.7 % (37.0-47.0); HEMOGLOBIN 13.1 g/dl (12.0-16.0); LYMPHOCYTES # 1.9 10^3/ul (0.8-2.9); LYMPHOCYTES % 25.1 % (15.0-51.0); MEAN CORPUSCULAR HEMOGLOBIN 27.5 pg (29.0-33.0); MEAN CORPUSCULAR VOLUME 83.2 fl (82.0-101.0); MEAN PLATELET VOLUME 8.8 fl (7.4-10.4); MONOCYTE # 0.6 10^3/ul (0.3-0.9); MONOCYTES % 7.5 % (0.0-11.0); NEUTROPHIL # 5.1 10^3/ul (1.6-7.5); NEUTROPHILS % 65.9 % (39.0-77.0); PLATELET COUNT 200 10^3/UL (140-415); RED BLOOD COUNT 4.77 10^6/ul (4.20-5.40); RED CELL DISTRIBUTION WIDTH 13.9 % (11.5-14.5)
[2018-10-12 00:33] LABS: WHITE BLOOD COUNT 7.7 10^3/ul (4.8-10.8)
[2018-10-12 00:50] LABS: ANION GAP 6 (5-13); BLOOD UREA NITROGEN 8 mg/dl (7-20); CALCIUM 9.2 mg/dl (8.4-10.2); CARBON DIOXIDE 27 mmol/L (21-31); CHLORIDE 105 mmol/L (97-110); CREATININE 0.47 mg/dl (0.44-1.00); Estimated GFR > 60 mL/min (>60); GLUCOSE 150 mg/dl (70-220); POTASSIUM 3.9 mmol/L (3.5-5.1); SODIUM 138 mmol/L (135-144)
== END 2018-10-12 01:19 | disposition home or self-care (01) ==
LOC: E/R 10-12 01:19
DX: R19.7 Diarrhea, unspecified (principal)
CPT/HCPCS: 36415; 80048; 85025; 99283